=== PATIENT | female | born 1970 | race African-American/Black ===

== ENCOUNTER 2023-08-21 14:02 | Inpatient (IN) | payer SELFPAY, OTHER ==
[~2023-08-21 14:02] MED LIST: Iopamidol-370 76% 500 ML MDV (1 ML CHARGE) ONE
[2023-08-21] MEDS ORDERED: Boostrix 0.5 ML (Tdap) VIAL (>/=7 yrs of age) ONE (14:08)
[2023-08-21] MEDS ORDERED: CEFAZOLIN 2 GM VIAL ONE (14:08)
[2023-08-21] MEDS ORDERED: fentaNYL 50 mcg/mL 1 mL Vial ONE ×2 (14:08→15:10)
[2023-08-21] MEDS ORDERED: Sodium Chloride 0.9% 100 ML ONE (14:09)
[2023-08-21] MEDS ORDERED: TETANUS, DIPHTHERIA TOX,ADULT (TDVAX) 0.5 ML VIAL IM ONE (14:27)
[2023-08-21] MEDS ORDERED: Ondansetron ODT 4 MG TAB PO PRN (14:27)
[2023-08-21] MEDS ORDERED: Ondansetron PF 4 MG/2 ML Vial IVP PRN (14:27)
[2023-08-21] MEDS ORDERED: Ketorolac Tromethamine 30 MG (1 mL) VIAL IVP SCH (14:30)
[2023-08-21 14:59] LABS: #Eosinphils 0.2 thou/uL (0.0-0.7); #Monocytes 0.6 thou/uL (0.11-0.59); #Neutrophils 11.5 thou/uL (1.40-6.50); %Basophils 0.3 % (0.0-1.0); %Eosinophils 1.1 % (0.0-10.0); %Lymphocytes 12.4 % (21.0-51.0); %Monocytes 4.1 % (0.0-10.0); %Neutrophils 81.7 % (42.0-75.0); Hematocrit 35.7 % (36.0-47.0); Hemoglobin 11.4 g/dL (12.0-16.0); Mean Corpuscular HGB CONC 31.9 g/dL (32.0-36.0); Mean Corpuscular Hemoglobin 33.1 pg (27.0-31.0); Mean Corpuscular Volume 103.8 fl (78.0-98.0); Mean Platelet Volume 9.1 fL (7.4-10.4); Platelet Count 288 10x3/uL (130-400); RBC Distribution Width 11.9 % (11.5-14.5); Red Blood Cell (RBC) Count 3.44 mill/uL (4.20-5.40); White Blood Cell (WBC) Count 14.1 10x3/uL (4.8-10.8)
[2023-08-21 15:08] LABS: BHCG - Serum Negative (NEGATIVE); Pregs Control Background? CLEAR/WHITE (CLR/WHITE); Pregs Control Bar Appear? YES (CONTROL BAR)
[2023-08-21 15:15] LABS: ALT (SGPT) 116 U/L (8-55); AST (SGOT) 106 U/L (5-34); Albumin 3.4 g/dL (3.5-5.0); Alcohol Less than 10.0 mg/dL (Less than 10); Alkaline Phosphatase 115 U/L (40-110); Anion Gap 10 mmol/L (10-20); BUN (Urea Nitrogen) 13 mg/dL (9.8-20.1); Bilirubin, Total 0.3 mg/dL (0.2-1.2); Calc. Creatinine Clearance 0 mL/min (70-130); Calcium 8.3 mg/dL (7.8-10.44); Carbon Dioxide 21 mmol/L (22-29); Chloride 106 mmol/L (98-107); Estimated GFR 75; Globulin 2.7 g/dL (2.4-3.5); Glucose 141 mg/dL (70-105); Lipase 35 U/L (8-78); Potassium 3.9 mmol/L (3.5-5.1); Protein, Total 6.1 g/dL (6.0-8.3); Sodium 133 mmol/L (136-145)
[2023-08-21 16:15] LABS: INR-International Normal Ratio 1.1; PTT 25.4 sec (22.9-36.1); Prothrombin Time 13.8 sec (12.0-14.7)
[2023-08-21 16:20] LABS: Bacteria/HPF None Seen HPF (None Seen); Bilirubin Negative (Negative); Blood, Urine Negative (Negative); CAUTI Indications for Culture Alt mental st,lethar; Clarity Clear (Clear); Glucose, Urine (Dipstick) Normal (Negative); Ketone, Urine Negative (Negative); Leukocyte Negative Leu/uL (Negative); Nitrite Negative (Negative); Protein, Urine (Dipstick) 20 mg/dL (Neg-Trace); RBC/HPF 0-3 HPF (0-3); Squamous Epithelial None Seen HPF (0-3); Urobilinogen Normal mg/dL (Less than 2); WBC/HPF 0-3 HPF (0-3)
[2023-08-21 16:21] LABS: Specific Gravity, Urine Greater than 1.060 (1.002-1.036)
[2023-08-21 16:22] LABS: Urine Culture Reflex No No
[2023-08-21] MEDS: Fentanyl 100 MCG/2 ML VIAL SLOW IVP PRN ×2 (18:28→20:57)
[2023-08-21 18:46] VITALS: BMI 27.1
[2023-08-21] MEDS: CEFAZOLIN 2 GM in Sodium Chloride 0.9% 100 ML IVPB SCH (20:57)
[2023-08-21] MEDS: Famotidine 20 MG TAB PO SCH (20:57)
[2023-08-21] MEDS: Acetaminophen 500 MG TAB PO SCH (20:58)
[2023-08-22] MEDS: Ketorolac Tromethamine 30 MG (1 mL) VIAL IVP SCH ×4 (00:11→20:26)
[2023-08-22] MEDS: Fentanyl 100 MCG/2 ML VIAL SLOW IVP PRN ×4 (02:43→16:58)
[2023-08-22 03:58] LABS: #Eosinphils 0.1 thou/uL (0.0-0.7); #Monocytes 0.9 thou/uL (0.11-0.59); #Neutrophils 4.2 thou/uL (1.40-6.50); %Basophils 0.5 % (0.0-1.0); %Eosinophils 0.8 % (0.0-10.0); %Lymphocytes 32.2 % (21.0-51.0); %Neutrophils 54.2 % (42.0-75.0); Hematocrit 30.9 % (36.0-47.0); Hemoglobin 10.1 g/dL (12.0-16.0); Mean Corpuscular HGB CONC 32.7 g/dL (32.0-36.0); Mean Platelet Volume 9.3 fL (7.4-10.4); Platelet Count 268 10x3/uL (130-400); RBC Distribution Width 11.9 % (11.5-14.5); Red Blood Cell (RBC) Count 3.06 mill/uL (4.20-5.40); White Blood Cell (WBC) Count 7.8 10x3/uL (4.8-10.8)
[2023-08-22 04:23] LABS: Anion Gap 9 mmol/L (10-20); BUN (Urea Nitrogen) 12 mg/dL (9.8-20.1); Calc. Creatinine Clearance 131 mL/min (70-130); Calcium 8.2 mg/dL (7.8-10.44); Carbon Dioxide 24 mmol/L (22-29); Chloride 106 mmol/L (98-107); Estimated GFR 107; Glucose 122 mg/dL (70-105); Potassium 3.7 mmol/L (3.5-5.1); Sodium 135 mmol/L (136-145)
[2023-08-22] MEDS: CEFAZOLIN 2 GM in Sodium Chloride 0.9% 100 ML IVPB SCH ×2 (05:10→18:27)
[2023-08-22] MEDS ORDERED: fentaNYL 50 mcg/mL 1 mL Vial ONE ×4 (08:40→12:56)
[2023-08-22] MEDS ORDERED: Midazolam HCl 2 mg/2 ml Vial ONE ×2 (08:40→08:58)
[2023-08-22] MEDS ORDERED: Bupivacaine PF 0.5% 30 ML VIAL ONE (08:40)
[2023-08-22] MEDS ORDERED: Fentanyl 250 MCG/5 ML VIAL ONE (08:58)
[2023-08-22] MEDS ORDERED: PROPOFOL 20 ML ONE (08:58)
[2023-08-22] MEDS ORDERED: Ondansetron PF 4 MG/2 ML Vial ONE (08:58)
[2023-08-22] MEDS ORDERED: Dexamethasone 4 mg/ml Vial ONE (08:58)
[2023-08-22] MEDS ORDERED: Lidocaine 2% PF 5 ML VIAL ONE (08:58)
[2023-08-22] MEDS ORDERED: CEFAZOLIN 2 GM VIAL ONE (09:47)
[2023-08-22] MEDS ORDERED: Sodium Chloride 0.9% 100 ML ONE ×2 (09:48→10:19)
[2023-08-22] MEDS ORDERED: Bupivacaine HCl 0.5%/Epinephrine 1:200,000/PF 30 ml Vial ONE (10:07)
[2023-08-22] MEDS ORDERED: Albumin 5% 500 ML ONE (10:07)
[2023-08-22] MEDS ORDERED: PHENYLEPHRINE-NS 100 MCG/ML 10 ML SYRINGE ONE (10:07)
[2023-08-22] MEDS ORDERED: Tranexamic Acid 1,000 MG/10 ML VIAL ONE (10:19)
[2023-08-22] MEDS ORDERED: Promethazine HCl 25 MG/ML VIAL IM PRN (10:35)
[2023-08-22] MEDS ORDERED: Ondansetron HCl/PF 4 MG/2 ML Vial IVP PRN (10:35)
[2023-08-22] MEDS ORDERED: HYDROmorphone 2 MG/ML VIAL SLOW IVP PRN (10:35)
[2023-08-22] MEDS ORDERED: SUGAMMADEX SODIUM 200 MG/2 ML VIAL ONE (10:41)
[2023-08-22] MEDS ORDERED: Vancomycin 1 GM VIAL ONE (11:26)
[2023-08-22] MEDS ORDERED: Ketamine In 0.9 % NaCl 50 MG/5 ML SYRINGE ONE (13:56)
[2023-08-22] MEDS ORDERED: Polyethylene Glycol 3350 17 GM Packet PO PRN (14:41)
[2023-08-22] MEDS: Acetaminophen 500 MG TAB PO SCH ×3 (16:56→20:25)
[2023-08-22] MEDS: HYDROcodone/Acetaminophen 10/325 mg Tablet PO PRN ×2 (18:26→22:26)
[2023-08-22] MEDS: Senokot S 8.6-50 MG TAB PO SCH (19:40)
[2023-08-22] MEDS: Famotidine 20 MG TAB PO SCH ×2 (19:48→20:26)
[2023-08-23] MEDS: Ketorolac Tromethamine 30 MG (1 mL) VIAL IVP SCH ×2 (00:45→06:02)
[2023-08-23] MEDS: CEFAZOLIN 2 GM in Sodium Chloride 0.9% 100 ML IVPB SCH (00:45)
[2023-08-23 04:54] LABS: #Monocytes 1.1 thou/uL (0.11-0.59); %Basophils 0.3 % (0.0-1.0); %Eosinophils 0.4 % (0.0-10.0); %Lymphocytes 19.7 % (21.0-51.0); %Monocytes 11.2 % (0.0-10.0); %Neutrophils 68.2 % (42.0-75.0); Hematocrit 25.9 % (36.0-47.0); Hemoglobin 8.4 g/dL (12.0-16.0); Mean Corpuscular HGB CONC 32.4 g/dL (32.0-36.0); Mean Corpuscular Hemoglobin 31.6 pg (27.0-31.0); Mean Corpuscular Volume 97.4 fl (78.0-98.0); Mean Platelet Volume 9.6 fL (7.4-10.4); Platelet Count 180 10x3/uL (130-400); RBC Distribution Width 15.2 % (11.5-14.5); Red Blood Cell (RBC) Count 2.66 mill/uL (4.20-5.40); White Blood Cell (WBC) Count 10.2 10x3/uL (4.8-10.8)
[2023-08-23 05:25] LABS: Anion Gap 8 mmol/L (10-20); BUN (Urea Nitrogen) 8 mg/dL (9.8-20.1); Calc. Creatinine Clearance 134 mL/min (70-130); Calcium 7.8 mg/dL (7.8-10.44); Carbon Dioxide 26 mmol/L (22-29); Chloride 107 mmol/L (98-107); Estimated GFR 108; Glucose 110 mg/dL (70-105); Potassium 4.1 mmol/L (3.5-5.1); Sodium 137 mmol/L (136-145)
[2023-08-23] MEDS: HYDROcodone/Acetaminophen 5/325 mg Tablet PO PRN ×3 (06:02→10:41)
[2023-08-23] MEDS: Acetaminophen 500 MG TAB PO SCH ×2 (08:56→15:58)
[2023-08-23] MEDS: Enoxaparin 40 MG (0.4 mL) SYRINGE SC SCH (09:12)
[2023-08-23] MEDS: Senokot S 8.6-50 MG TAB PO SCH ×2 (09:13→21:45)
[2023-08-23] MEDS: Famotidine 20 MG TAB PO SCH ×2 (09:13→21:45)
[2023-08-23] MEDS: Fentanyl 100 MCG/2 ML VIAL SLOW IVP PRN ×4 (10:56→21:46)
[2023-08-23] MEDS: HYDROcodone/Acetaminophen 10/325 mg Tablet PO PRN ×3 (14:10→21:45)
[2023-08-23] MEDS ORDERED: Acetaminophen 325 MG TAB PO PRN (19:31)
[2023-08-23] MEDS: Gabapentin 300 MG CAP PO SCH (21:45)
[2023-08-24] MEDS: HYDROcodone/Acetaminophen 10/325 mg Tablet PO PRN ×5 (02:31→20:21)
[2023-08-24] MEDS: Ketorolac Tromethamine 30 MG (1 mL) VIAL IVP SCH ×4 (02:34→18:58)
[2023-08-24 06:39] LABS: #Eosinphils 0.3 thou/uL (0.0-0.7); #Monocytes 1.2 thou/uL (0.11-0.59); #Neutrophils 7.2 thou/uL (1.40-6.50); %Basophils 0.4 % (0.0-1.0); %Eosinophils 2.4 % (0.0-10.0); %Lymphocytes 17.7 % (21.0-51.0); %Monocytes 11.4 % (0.0-10.0); %Neutrophils 67.8 % (42.0-75.0); Hematocrit 24.9 % (36.0-47.0); Hemoglobin 8.3 g/dL (12.0-16.0); Mean Corpuscular HGB CONC 33.3 g/dL (32.0-36.0); Mean Corpuscular Hemoglobin 32.7 pg (27.0-31.0); Mean Platelet Volume 9.6 fL (7.4-10.4); Platelet Count 198 10x3/uL (130-400); RBC Distribution Width 14.6 % (11.5-14.5); Red Blood Cell (RBC) Count 2.54 mill/uL (4.20-5.40); White Blood Cell (WBC) Count 10.5 10x3/uL (4.8-10.8)
[2023-08-24 07:20] LABS: Anion Gap 9 mmol/L (10-20); BUN (Urea Nitrogen) 6 mg/dL (9.8-20.1); Calc. Creatinine Clearance 136 mL/min (70-130); Calcium 8.5 mg/dL (7.8-10.44); Carbon Dioxide 28 mmol/L (22-29); Chloride 104 mmol/L (98-107); Estimated GFR 108; Glucose 103 mg/dL (70-105); Sodium 137 mmol/L (136-145)
[2023-08-24] MEDS: Gabapentin 300 MG CAP PO SCH ×3 (10:11→20:20)
[2023-08-24] MEDS: Senokot S 8.6-50 MG TAB PO SCH ×2 (10:13→20:20)
[2023-08-24] MEDS: Enoxaparin 40 MG (0.4 mL) SYRINGE SC SCH (10:13)
[2023-08-24] MEDS: Famotidine 20 MG TAB PO SCH ×2 (10:13→20:20)
[2023-08-24] MEDS: Fentanyl 100 MCG/2 ML VIAL SLOW IVP PRN ×3 (10:17→20:27)
[2023-08-24] MEDS: Acetaminophen 500 MG TAB PO SCH (13:33)
[2023-08-25] MEDS: Ketorolac Tromethamine 30 MG (1 mL) VIAL IVP SCH ×3 (00:25→13:08)
[2023-08-25] MEDS: HYDROcodone/Acetaminophen 10/325 mg Tablet PO PRN ×4 (00:26→13:03)
[2023-08-25] MEDS: Famotidine 20 MG TAB PO SCH (08:43)
[2023-08-25] MEDS: Gabapentin 300 MG CAP PO SCH (08:44)
[2023-08-25] MEDS: Senokot S 8.6-50 MG TAB PO SCH (08:44)
[2023-08-25] MEDS: Enoxaparin 40 MG (0.4 mL) SYRINGE SC SCH (08:45)
[2023-08-25 11:35] VITALS: BP 111/60; TEMP 98
== END 2023-08-25 13:35 | disposition home or self-care (01) | DRG 481 ==
LOC: ERS 14:02 → SJJU 14:27
PROVIDERS: ADMIT Specialist; ATTEND Specialist
PROC: 0QSC04Z Reposition Left Lower Femur with Internal Fixation Device, Open Approach (ICD-10-PCS; principal; 2023-08-22)
PROC: 30233N1 Transfusion of Nonautologous Red Blood Cells into Peripheral Vein, Percutaneous Approach (ICD-10-PCS; 2023-08-22)
PROC: 30233J1 Transfusion of Nonautologous Serum Albumin into Peripheral Vein, Percutaneous Approach (ICD-10-PCS; 2023-08-22)
DX: S72.452B Displaced supracondylar fracture without intracondylar extension of lower end of left femur, initial encounter for open fracture type I or II (principal); S22.31XA Fracture of one rib, right side, initial encounter for closed fracture; E66.9 Obesity, unspecified; Z88.8 Allergy status to other drugs, medicaments and biological substances; V49.9XXA Car occupant (driver) (passenger) injured in unspecified traffic accident, initial encounter; Y92.89 Other specified places as the place of occurrence of the external cause; Z98.890 Other specified postprocedural states; Z68.27 Body mass index [BMI] 27.0-27.9, adult
CPT/HCPCS: 27510; 36415; 36430; 51702; 70450; 71045; 71260; 72125; 74177; 80048; 80053; 80307; 81001; 83605; 83690; 84703; 85025; 85610; 85730; 86850; 86870; 86900; 86901; 86904; 86905; 86922; 90471; 90715; 93005; 96365; 96375; 96376; C1713; G0390; J1100; J1650; J1885; J2001; J2250; J2405; J2704; J3010; J3370; J3490; P9016; P9045; Q9967; S0020